=== PATIENT | male | born 1995 | race Caucasian/White ===

== ENCOUNTER 2017-07-29 11:40 | Emergency (ER) | payer OTHER | END 2017-07-29 13:39 | disposition home or self-care (01) | LOC: EDBD 11:40 → D.ER 11:40 | DX: F43.20 Adjustment disorder, unspecified (principal); F17.200 Nicotine dependence, unspecified, uncomplicated ==

== ENCOUNTER → 2017-08-07 14:25 | Outpatient (CLI) | payer OTHER | END | disposition home or self-care (01) | LOC: D.RAD 14:25 | DX: R07.81 Pleurodynia (principal) ==